=== PATIENT | female | born 1980 | race Hispanic/Latino ===

== ENCOUNTER 2016-11-22 03:25 | Emergency (ER) | payer OTHER ==
[~2016-11-22] VITALS: Ht 152.4 cm; Wt 179.0 kg
[~2016-11-22 03:25] MED LIST: GABA-502 PO; MELO7.5T13 PO; METH500T PO; METO-274 PO; RANI150C4 PO; TOPI25CA12 PO
[2016-11-22 03:32] VITALS: BP 131/77; PULSE 89; RESP 25; O2SAT 100
--- NOTE | 2016-11-22 03:36 | ED.REPORT ---
HPI-Seizure Date of Service Nov 22, 2016 ED Provider: Noel De La Rosa MD A 36 year old female with a history of epilepsy is brought to the ED via EMS due to a seizure. The pt experienced an unwitnessed generalized seizure at approximately 00:00 tonight despite taking her medications as prescribed. She had another "rolling seizure" soon after, witnessed by her , lasting five minutes. During this seizure the pt became incontinent of urine and suspects that she chipped her tooth. She has been undergoing several medication changes recently including titrating up lamotrigine, stopping lamotrigine and beginning zonisamide and clonazepam recently. The pt also takes lorazepam as needed. She admits to recent insomnia, which she believes may be related to her seizure, but denies fever or diarrhea. Nursing Notes Stated Complaint: SEIZURE Chief Complaint: Seizure Nursing Notes Reviewed: Yes Allergies: Coded Allergies: codeine (Verified Allergy, Unknown, 11/22/16) Scheduled Lamotrigine (Lamotrigine) 25 Mg Tablet 50 MG PO HS Lamotrigine (Lamotrigine) 25 Mg Tablet 100 MG PO MORNING Zonisamide (Zonisamide) 100 Mg Capsule 200 MG PO BID Scheduled PRN Clonazepam (Clonazepam) 0.5 Mg Tablet 0.5 MG PO BID PRN PRN For Seizure Lorazepam (Lorazepam) 1 Mg Tablet 1 MG PO DIRECTED PRN PRN For Anxiety General Time Seen by Provider: 03:38 Chief Complaint Chief Complaint: Seizure, generalized Hx Obtained From: Patient, EMS Arrived By: Ambulance Onset Occurred: 16 - 30 minutes ago Recent Healthcare: Recent doctor visit Similar Sx Previous: Yes Past Medical History Past Medical History Notes: Neurologist: Dr. Choe at [facility] Past Medical History History of PVC Pituitary adenoma History of DVT, not currently on warfarin Epilepsy Past Surgical History Thyroid lobectomy secondary to non cancerous nodules Reports: Cholecystectomy Smoking History Never Smoker Social History Alcohol Use: "Social" Drug Use: Denies drug use Occupation Active duty in the [employer] Status Independent Review of Systems Constitutional: Denies: Fever Respiratory: Denies: Non-productive cough, Shortness of breath Cardiovascular: Denies: Chest pain Musculoskeletal: Denies: Back pain, Neck pain Skin: Denies Rash Neurologic: Reports: Seizure Complete sys rev & neg: except as marked. GI: Denies: Abdominal pain, Diarrhea, Vomiting Psychiatric: Reports: Insomnia Physical Exam Initial Vital Signs Vital Signs (First) Date Time Temp Pulse Resp B/P Pulse Ox O2 Delivery O2 Flow Rate FiO2 11/22/16 03:32 37.0 89 25 131/77 100 Room Air Initial VS: Reviewed General/Constitutional: Awake, Alert slightly post ictal slow to speak mildly confused Neck: Atraumatic, Supple, Full range of motion Respiratory / Chest: Atraumatic, Breath sounds NL, Breath sounds = bilat, No respiratory distress Cardiovascular: Heart rate NL, Regular rhythm, Heart sounds NL Neurologic: Oriented X3, No motor deficits, No sensory deficits Head / Eyes: Atraumatic, Normocephalic, PERRL, EOMI ENT: Atraumatic, Airway patent, Mucous membranes moist Abdomen: Atraumatic, Soft, Non-tender Upper Extremity / MS: Atraumatic, Full range of motion Lower Extremity / Pelvis / MS: Atraumatic, Full range of motion Skin: Atraumatic, Color NL, No rash, Warm, Dry Back: Atraumatic, Full range of motion Interpretation & Diagnostics Lab Results Interpretation Result Diagram: 11/22/16 0330 11/22/16 0330 Test 11/22/16 03:30 11/22/16 04:00 11/22/16 04:30 White Blood Count 10.5th/mm3 (3.8-10.1) Red Blood Count 5.07mil/mm3 (3.90-5.20) Hemoglobin 13.7g/dL (12.0-15.6) Hematocrit 41.1% (35.0-46.0) Mean Corpuscular Volume 81.1fL (81-100) Mean Corpuscular Hemoglobin 27.0pg (27.0-35.0) Mean Corpuscular Hemoglobin Concent 33.3% (32.0-37.0) Red Cell Distribution Width 14.9% (12.3-15.4) Platelet Count 334bil/L (150-400) Neutrophils (%) (Auto) 70.0% (40-74) Lymphocytes (%) (Auto) 23.4% (14-46) Monocytes (%) (Auto) 5.4% (4-12) Eosinophils (%) (Auto) 0.7% (0-5) Basophils (%) (Auto) 0.3% (0-3) Prothrombin Time 10.5sec (8.1-12.5) Prothromb Time International Ratio 0.98ratio Sodium Level 141mEq/L (134-144) Potassium Level 3.7mEq/L (3.5-5.2) Chloride Level 109mEq/L (97-108) Carbon Dioxide Level 17mmol/L (18-29) Blood Urea Nitrogen 10mg/dL (6-20) Creatinine 0.67mg/dL (0.57-1.00) Estimat Glomerular Filtration Rate 141mL/min (>59) Glucose Level 130mg/dL (60-99) Calcium Level 9.0mg/dL (8.5-10.1) Total Bilirubin 0.2mg/dL (0.0-1.2) Aspartate Amino Transf (AST/SGOT) 13U/L (0-50) Alanine Aminotransferase (ALT/SGPT) 16U/L (0-32) Alkaline Phosphatase 91U/L (25-150) Total Protein 7.4g/dL (6.4-8.4) Albumin 4.7g/dL (3.4-5.0) Urine Color Yellow (YELLOW) Urine Appearance Slightly cloudy Urine pH 6.5 (5.0-8.0) Urine Specific [place] 1.020 (1.003-1.035) Urine Protein Negativemg/dL (NEG,TRACE) Urine Glucose (UA) Negativemg/dL (NEGATIVE) Urine Ketones Negativemg/dL (NEGATIVE) Urine Occult Blood Large (NEGATIVE) Urine Nitrite Negative (NEGATIVE) Urine Bilirubin Negative (NEGATIVE) Urine Urobilinogen Normalmg/dL (NORMAL) Urine Leukocyte Esterase Negative (NEGATIVE) Urine RBC >50/hpf (0-2) Urine WBC 0-5/hpf (0-5) Urine Epithelial Cells Moderate/hpf (NONE-MOD) Urine Crystals None seen (NONE SEEN) Urine Bacteria Few/hpf (NONE-FEW) Urine Hyaline Casts None/lpf (NONE) Urine Granular Casts None seen (NONE SEEN) Urine Waxy Casts None seen (NONE SEEN) Urine Red Blood Cell Casts None seen (NONE SEEN) Urine White Blood Cell Casts None seen (NONE SEEN) Urine Mucus None seen (None Seen) Urine Trichomonas None seen (NONE SEEN) Urine Yeast None (NONE SEEN) Urinalysis Comment None Re-Eval/Medical Decision Med Decision/Clinical Course 36-year-old with seizure disorder and fairly frequent breakthrough seizures, presents after two seizures tonight, one fairly prolonged with a prolonged postictal state. No specific exacerbations known other than sleep deprivation recently. She has been taking meds as directed and is been absorbing them as far she knows, without diarrhea or vomiting. Discussed with Dr. levin, and will give her an additional dose of lamotrigine as well as an additional dose of clonazepam tonight. She will call Dr. levin's office this morning and follow up as directed. Source of Hx: Old records Re-Evaluation/Progress #1: Time of Eval: 03:56 Patient Status: Condition improved Re-Evaluation/Progress Note: Pt rechecked with family present. Medications are discussed. Re-Evaluation/Progress #2: Time of Eval: 04:33 Re-Evaluation/Progress Note: Pt rechecked, who is resting. Additional history is obtained. Re-Evaluation/Progress #3: Time of Eval: 05:01 Patient Status: Condition improved Re-Evaluation/Progress Note: Pt rechecked, who is resting comfortably following 50 of lamotrigine and 0.5 of clonazepam. The diagnosis and plan for discharge are discussed. The pt understands and agrees with the plan. All questions are addressed at this time. Consultation : Referral / Consult Name: Inocencio Levin MD Consulted With: Neurology Call Returned at: 04:49 Pulmonary Care Nurse: Will see in office, Agrees with eval, Agrees with plan Note: Consulted with Dr. Levin, neurology, regarding pt's case. Dr. Levin agrees with the evaluation and plan, and will see the pt in the office. Counseled Regarding: Diagnosis, Lab results, Need for follow-up, When/why to return to ED Discharge & Departure Impression: Primary Impression: Seizure Additional Impression: Breakthrough seizure Disposition: Home Discharge Condition All VS Reviewed: Yes Condition: Stable Patient Instructions: Clonazepam (By mouth), Lamotrigine (By mouth) Additional Instructions: Call Dr. Levin's office later today. Return if you have recurrent/persistent seizures, especially if prolonged beyond ten minutes, or accompanied by excessive recovery period. We gave you an extra 2 lamotrigine tablets, and one additional clonazepam tablet. Continue your upward taper as directed. Referrals: Nunu Garcia ARNP (PCP) Inocencio Levin MD Scribe Attestation Portions of this note were transcribed by Korin Castillo. I, Dr. De La Rosa personally performed the history, physical exam and medical decision-making; I reviewed and confirmed the accuracy of the information in the transcribed note. copies to: Nunu Garcia ARNP; Inocencio Levin MD, Christopher W MD Nov 22, 2016 03:36 KORIN CASTILLO Nov 22, 2016 03:47
[2016-11-22] MEDS ORDERED: LAMO25TA PO ×2 (03:44→04:05)
[2016-11-22] MEDS ORDERED: ZONI100C6 PO (03:44)
[2016-11-22] MEDS ORDERED: KLO5T PO (03:44)
[2016-11-22] MEDS ORDERED: LORA1TAB PO (03:44)
[2016-11-22 03:52] VITALS: BP 141/80; PULSE 80; RESP 9; O2SAT 100
[2016-11-22 03:55] LABS: BASOPHILS % (AUTO) 0.3 % (0-3); EOSINOPHILS % (AUTO) 0.7 % (0-5); MONOCYTES % (AUTO) 5.4 % (4-12); Mean Corpuscular Volume 81.1 fL (81-100); Platelet Count 334 bil/L (150-400)
[2016-11-22 04:00] LABS: INR 0.98 ratio
[2016-11-22 04:14] VITALS: BP 139/87; PULSE 97; RESP 25; O2SAT 98
[2016-11-22 04:41] LABS: APPEARANCE,URINE SLIGHTLY CLOUDY (CLEAR,HAZY); COLOR,URINE YELLOW (YELLOW); OCCULT BLOOD,URINE LARGE (NEGATIVE); PH,URINE 6.5 (5.0-8.0); UROBILINOGEN,URINE NORMAL (NORMAL)
[2016-11-22 04:58] VITALS: BP 150/105; PULSE 97; RESP 12; RESP 22; O2SAT 100
[2016-11-22 05:14] VITALS: BP 131/86; PULSE 83; RESP 16; O2SAT 99
== END 2016-11-22 05:15 | disposition home or self-care (01) ==
LOC: EDBD 03:25 → SED 03:25
DX: R56.9 Unspecified convulsions (principal); Z88.5 Allergy status to narcotic agent; Z86.718 Personal history of other venous thrombosis and embolism